=== PATIENT | male | born 1980 | race Caucasian/White ===

== ENCOUNTER → 2016-11-15 | Outpatient (CLI) | payer BC ==
--- NOTE | 2016-11-15 10:48 | XR ---
EXAMINATION TYPE: XR lumbar spine 2 or 3V DATE OF EXAM: 11/15/2016 CLINICAL HISTORY: Chronic low back pain. TECHNIQUE: Frontal and lateral images of the lumbar spine are obtained. COMPARISON: Lumbar spine x-ray October 29, 2012. MRI lumbar spine October 30, 2012. FINDINGS: There are 5 lumbar type vertebral bodies identified. The lumbar spine shows straightened alignment without evidence of acute fracture or dislocation. There is persistent moderate disc space narrowing L5-S1 level with endplate sclerosis. Vertebral body heights and disk space heights otherwis e are within normal limits. The overlying soft tissue appears unremarkable. IMPRESSION: Straightening of lumbar spine with moderate disc space narrowing L5-S1 level redemonstrat ed. No significant change from prior studies.
== END | disposition home or self-care (01) ==
LOC: RADPROMAIN 09:55
PROVIDERS: ATTEND Family Medicine
DX: M48.07 Spinal stenosis, lumbosacral region (principal); M48.8X6 Other specified spondylopathies, lumbar region
CPT/HCPCS: 72100

== ENCOUNTER → 2016-12-04 | Outpatient (CLI) | payer BC ==
--- NOTE | 2016-12-04 23:18 | MR ---
EXAMINATION TYPE: MR lumbar spine wo con DATE OF EXAM: 12/04/2016 COMPARISON: 10/30/2012 HISTORY: Low back pain x7 years TECHNIQUE: Multiplanar, multisequence images of the lumbar spine were acquired. The lumbar vertebra have normal alignment. There is narrowing at L5-S1 disc space with decreased sign al in the disc. There is posterior disc herniation at L5-S1 into the spinal canal in the midline and towards the left side. There is mild narrowing of the neural foramina at L5-S1 due to disc space narr owing. Sacroiliac joints appear intact. There is no lumbar paraspinal mass. There is no compression f racture. I see no focal bone destruction. IMPRESSION: There is a moderate posterior L5-S1 disc herniation there appears slightly smaller than the last exam of 10/30/2012. This is consistent with ordinary desiccation. Minimal neural foraminal narrowing. No s wayne stenosis.
== END | disposition home or self-care (01) ==
LOC: RADMRIMAIN 21:09
PROVIDERS: ATTEND Family Medicine
DX: M99.73 Connective tissue and disc stenosis of intervertebral foramina of lumbar region (principal); M51.27 Other intervertebral disc displacement, lumbosacral region
CPT/HCPCS: 72148

== ENCOUNTER 2017-04-19 22:10 | Emergency (ER) | payer BC ==
[2017-04-19 22:14] VITALS: BP 125/77; PULSE 109; RESP 18; TEMP 97.4
[2017-04-19] MEDS ORDERED: PROPARACAINE 0.5% OPHTH DROPS 15 ML BTL RIGHT EYE STA (22:39)
[2017-04-19] MEDS ORDERED: ERYTHROMYCIN 5 MG/GM OPHTH OINT 3.5 GM TUBE RIGHT EYE STA (23:09)
--- NOTE | 2017-04-19 23:09 | ED ---
Eye Problem HPI - General Chief complaint: Eye Problems Stated complaint: R eye problems Time Seen by Provider: 04/19/17 22:35 Source: patient Mode of arrival: ambulatory Limitations: no limitations - History of Present Illness Initial comments: Patient is a 36-year-old male presenting to the emergency department with chief complaint of right eye irritation. Patient states he was out hunting when a branch hit his right eye. Onset of injury happened at 5 PM this afternoon. Patient states initially he was doing well but a couple hours later his right eye started watering and felt like something was stuck in it. Patient denies eye pain. Patient denies any other injury. Patient reports having a tetanus immunization within the last 5 years Consistency: constant Context: injury Associated Symptoms: none Treatments Prior to Arrival: none - Related Data Home Medications Medication Instructions Recorded Confirmed Multivitamins, Thera [Multivitamin 1 tab PO DAILY 04/19/17 04/19/17 (formulary)] traMADol HCL [Ultram] 50 mg PO TID PRN 04/19/17 04/19/17 Previous Rx's Medication Instructions Recorded Erythromycin Ophth Oint [Romycin 1 applic RIGHT EYE QID #1 tube 04/19/17 Ophth Oint] Allergies Allergy/AdvReac Type Severity Reaction Status Date / Time No Known Allergies Allergy Verified 04/19/17 22:18 Review of Systems ROS Statement: Those systems with pertinent positive or pertinent negative responses have been documented in the HPI. ROS Other: All systems not noted in ROS Statement are negative. Past Medical History Past Medical History: No Reported History History of Any Multi-Drug Resistant Organisms: None Reported Past Surgical History: No Surgical Hx Reported Past Psychological History: No Psychological Hx Reported Smoking Status: Current every day smoker Past Alcohol Use History: None Reported Past Drug Use History: None Reported General Exam Limitations: no limitations General appearance: alert, in no apparent distress Head exam: Present: atraumatic, normocephalic, normal inspection Eye exam: Present: other (Right eye examined with Wood's lamp revealing corneal abrasion over iris. Right eyelid flipped with no evidence of foreign body.) Expanded Eyelids: Normal Inspection: Bilateral Pupils: Regular, Round: Bilateral, Reactive: Bilateral Sclera/Conjunctival: Injection: Bilateral Visual acuity (R) = 20/: 50 Visual acuity (L) = 20/: 20 With correction: No ENT exam: Present: normal exam, mucous membranes moist, normal external ear exam Neck exam: Present: normal inspection, full ROM. Absent: tenderness, lymphadenopathy Respiratory exam: Present: normal lung sounds bilaterally. Absent: respiratory distress, wheezes, rales, rhonchi Cardiovascular Exam: Present: regular rate, tachycardia, normal heart sounds. Absent: systolic murmur Course Vital Signs 04/19/17 22:12 Temperature 97.4 F L Pulse Rate 109 H Respiratory 18 Rate Blood Pressure 125/77 O2 Sat by Pulse 99 Oximetry Medical Decision Making - Medical Decision Making Corneal abrasion to right eye without evidence of foreign body. Disposition Clinical Impression: Corneal abrasion, right Disposition: HOME SELF-CARE Condition: Good Instructions: Abrasion (ED) Additional Instructions: Continue antibiotic as prescribed for 3-5 days. Continue Motrin every 6 hours as needed for pain. Follow-up with section hand helper in next 24-48 hours. Please return to the emergency department with any new or worsening symptoms. Prescriptions: Erythromycin Ophth Oint [Romycin Ophth Oint] 1 applic RIGHT EYE QID #1 tube Referrals: Rj Loza MD [Primary Care Provider] - 1-2 days Epifanio Maldonado MD [STAFF PHYSICIAN] - 1-2 days Time of Disposition: 23:12
== END 2017-04-19 23:31 | disposition home or self-care (01) ==
LOC: EC 22:10
DX: S05.01XA Injury of conjunctiva and corneal abrasion without foreign body, right eye, initial encounter (principal); F17.200 Nicotine dependence, unspecified, uncomplicated; Z79.899 Other long term (current) drug therapy; W22.09XA Striking against other stationary object, initial encounter; Y93.89 Activity, other specified; Y92.89 Other specified places as the place of occurrence of the external cause
CPT/HCPCS: 99283